=== PATIENT | male | born 1980 | race Caucasian/White ===

== ENCOUNTER 2024-11-19 13:35 | Emergency (ER) | payer MEDICAID ==
[~2024-11-19] VITALS: Ht 182.9 cm; Wt 77.1 kg
[2024-11-19 13:37] VITALS: BP 110/65
[2024-11-19] MEDS ORDERED: HYDR25SU13 RC (14:33)
[2024-11-19 14:41] VITALS: BP 110/65; O2SAT 99
== END 2024-11-19 14:42 | disposition home or self-care (01) ==
LOC: ER 13:35
DX: K64.9 Unspecified hemorrhoids (principal); K92.1 Melena; Z87.19 Personal history of other diseases of the digestive system
CPT/HCPCS: A4606; A4663